=== PATIENT | male | born 1965 | race Hispanic/Latino ===

== ENCOUNTER 2017-06-27 08:49 | Emergency (ER) | payer BC ==
[~2017-06-27] VITALS: Ht 180.3 cm; Wt 85.6 kg
[~2017-06-27 08:49] MED LIST: ASPIRIN81 MG PO; BENAZEPRIL5 M1 OR; CLOPIDOGREL75 MG PO; ENALAPRIL2.5 MG PO; EQ OMEPRAZOLE20 MG PO; ISOSORB MONO30 MG PO; LEVEMIR1000 UNITS SC; LIPITOR40 M1 PO; LOPID600 MG PO; LORTAB 5-325 MG1 TAB PO; LORTAB5 OR; METFORMIN1000 MG PO; METOPROL TAR25 MG PO; TORADOL PO; ZOFRAN ODT4 MG SL; [UNRECOGNIZED DRUG - MIXTURE] PO
[2017-06-27] MEDS ORDERED: MOTRIN400 MG PO (11:32)
[2017-06-27] MEDS ORDERED: VOLTAREN1%GEL TOP (11:33)
[2017-06-27 11:45] VITALS: BP 123/84
== END 2017-06-27 11:45 | disposition home or self-care (01) | DRG 552 ==
LOC: ED 08:49
DX: M54.5 Low back pain (principal)

== ENCOUNTER 2017-07-26 21:08 | Emergency (ER) | payer BC ==
[~2017-07-26] VITALS: Ht 180.3 cm; Wt 85.8 kg
[~2017-07-26 21:08] MED LIST changes: +LEVEMIR FL100 UNIT/M SC; -LEVEMIR1000 UNITS SC; +MOTRIN400 MG PO; +VOLTAREN1%GEL TOP
[2017-07-26] MEDS ORDERED: ATORVASTATIN CA40 MG PO (21:21)
[2017-07-26] MEDS ORDERED: ASPIRIN EC LOW81 MG PO (21:23)
[2017-07-26] MEDS ORDERED: UROCIT-K 101080 MG PO (21:31)
[2017-07-26] MEDS ORDERED: METFORMIN500 M2 PO (21:32)
[2017-07-26] MEDS ORDERED: HYDROCHLOROT12.5 M1 PO (21:35)
[2017-07-26 21:58] LABS: HEMATOCRIT 44.3 % (39.0-50.0); HEMOGLOBIN 15.4 g/dl (14.0-18.0); IMMATURE GRANULOCYTES 0.5 % (0.0-1.0); MEAN CELL VOLUME 82.3 fL CALC (80.0-100.0); MEAN CORPUSCULAR HGB 28.6 pG CALC (26.0-32.0); MEAN CORPUSCULAR HGB CONC 34.8 g/L CALC (32.0-36.0); NEUT# 4.74 thou/uL (1.82-7.42); RED BLOOD COUNT 5.38 mill/uL (4.70-6.10); RED CELL DISTRI WIDTH 12.5 % (11.5-15.5)
[2017-07-26 22:10] LABS: ALBUMIN 4.2 g/dL (3.2-5.0); ALKALINE PHOSPHATASE 252 u/l (38-126); ANION GAP 19 (6-22 (CALC)); BILIRUBIN, TOTAL 0.3 mg/dL (0.0-1.4); BUN 20 mg/dL (9-20); BUN/CREATININE RATIO 26 (12-20 (CALC)); CALCIUM 9.3 mg/dL (8.4-10.2); CARBON DIOXIDE 21 mmol/l (22-30); CHLORIDE 103 mmol/l (95-108); CREATININE 0.8 mg/dL (0.7-1.3); GFR > 60 ML/MIN (>=60 (CALC)); GFR FOR AFR.AMER. > 60 ML/MIN (>=60 (CALC)); GLUCOSE 256 mg/dL (75-110); POTASSIUM 4.2 mmol/l (3.5-5.1); SGOT/AST 21 u/l (17-59); SGPT/ALT 35 u/l (21-72); SODIUM 139 mmol/l (137-146); TOTAL PROTEIN 6.4 g/dL (6.3-8.2)
[2017-07-26] MEDS ORDERED: ZITHROMAX250 MG PO (22:42)
[2017-07-26] MEDS ORDERED: MEDDOSEPAK PO (22:42)
[2017-07-26 23:10] VITALS: BP 146/90
== END 2017-07-26 23:12 | disposition home or self-care (01) | DRG 153 ==
LOC: ED 21:08
PROVIDERS: Emergency Medicine
DX: J06.9 Acute upper respiratory infection, unspecified (principal); E11.9 Type 2 diabetes mellitus without complications; I10 Essential (primary) hypertension; Z87.442 Personal history of urinary calculi

== ENCOUNTER 2020-07-05 18:51 | Emergency (ER) | payer OTHER ==
[~2020-07-05] VITALS: Ht 180.3 cm; Wt 87.0 kg
[~2020-07-05 18:51] MED LIST changes: +ASPIRIN EC LOW81 MG PO; +ATORVASTATIN CA40 MG PO; +HYDROCHLOROT12.5 M1 PO; +MEDDOSEPAK PO; +METFORMIN500 M2 PO; +UROCIT-K 101080 MG PO; +ZITHROMAX250 MG PO
[2020-07-05] MEDS ORDERED: NOVOLOG100 UNIT/M SC (19:26)
[2020-07-05] MEDS ORDERED: [UNRECOGNIZED DRUG - OTHER] (19:27)
[2020-07-05] MEDS ORDERED: GENTAMICIN SULF5 ML OS (19:30)
[2020-07-05 19:50] VITALS: BP 137/80
[2020-07-05] MEDS ORDERED: VICTOZA18 MG/3 ML SC (19:54)
[2020-07-05] MEDS ORDERED: OMEPRAZOLE DR40 MG PO (19:54)
== END 2020-07-05 19:50 | disposition home or self-care (01) | DRG 125 ==
LOC: ED 18:51
DX: S05.02XA Injury of conjunctiva and corneal abrasion without foreign body, left eye, initial encounter (principal); E11.9 Type 2 diabetes mellitus without complications; I10 Essential (primary) hypertension; X58.XXXA Exposure to other specified factors, initial encounter; Y93.89 Activity, other specified; Y92.009 Unspecified place in unspecified non-institutional (private) residence as the place of occurrence of the external cause; Z79.84 Long term (current) use of oral hypoglycemic drugs

== ENCOUNTER 2023-03-27 07:24 | Emergency (ER) | payer OTHER ==
[~2023-03-27] VITALS: Ht 177.8 cm; Wt 79.4 kg
[2023-03-27] VITALS (25 sets, daily range): BP systolic 107–155; BP diastolic 69–90
[~2023-03-27 07:24] MED LIST changes: +GENTAMICIN SULF5 ML OS; +NOVOLOG100 UNIT/M SC; +OMEPRAZOLE DR40 MG PO; +VICTOZA18 MG/3 ML SC; +[UNRECOGNIZED DRUG - OTHER]
[2023-03-27] MEDS ORDERED: IBUPROFEN600 MG PO (14:40)
[2023-03-27] MEDS ORDERED: METHOCARBAMOL500 MG PO (14:40)
[2023-03-27] MEDS ORDERED: AMOX/K CLAV875 M1 PO (14:44)
== END 2023-03-27 15:30 | disposition home or self-care (01) | DRG 923 ==
LOC: ED 07:24
DX: Z04.1 Encounter for examination and observation following transport accident (principal); J32.9 Chronic sinusitis, unspecified; I10 Essential (primary) hypertension; E11.9 Type 2 diabetes mellitus without complications; E78.00 Pure hypercholesterolemia, unspecified; Z79.84 Long term (current) use of oral hypoglycemic drugs; Z79.4 Long term (current) use of insulin

== ENCOUNTER 2024-03-26 17:05 | Emergency (ER) | payer OTHER ==
[~2024-03-26] VITALS: Ht 177.8 cm; Wt 74.0 kg
[~2024-03-26 17:05] MED LIST changes: +AMOX/K CLAV875 M1 PO; +IBUPROFEN600 MG PO; +METHOCARBAMOL500 MG PO
[2024-03-26] MEDS ORDERED: ONDANSETRON HCl 4 MG/2 ML SDV IV ONE (17:15)
[2024-03-26] MEDS ORDERED: MORPHINE SULFATE 4 MG/ML VIAL IV ONE (17:15)
[2024-03-26 17:41] LABS: BASO% 0.3 % (0-3); HEMOGLOBIN 14.2 g/dl (14.0-18.0); IMMATURE GRANULOCYTES 0.6 % (0.0-5.0); LYMPH% 24.8 % (15-41); MEAN CELL VOLUME 82.2 fL CALC (80.0-100.0); MEAN CORPUSCULAR HGB 27.2 pG CALC (26.0-32.0); NEUT# 4.43 thou/uL (1.82-7.42); NEUT% 64.3 % (42-76); RED BLOOD COUNT 5.23 mill/uL (4.70-6.10); RED CELL DISTRI WIDTH 14.1 % (11.5-15.5)
[2024-03-26 17:49] LABS: ALBUMIN 4.2 g/dL (3.2-5.0); CREATININE 0.8 mg/dL (0.7-1.3); POTASSIUM 4.1 mmol/l (3.5-5.1); TOTAL PROTEIN 6.8 g/dL (6.3-8.2)
[2024-03-26 17:51] LABS: BILIRUBIN, TOTAL 0.5 mg/dL (0.2-1.3)
[2024-03-26 18:05] LABS: URINE BILIRUBIN - DIPSTICK Negative (NEGATIVE); URINE BLOOD DIPSTICK Negative (NEGATIVE); URINE CLARITY Clear; URINE GLUCOSE - DIPSTICK >=1000 mg/dL (NEGATIVE); URINE KETONE Negative (NEGATIVE); URINE LEUK ESTERASE Negative (Negative); URINE NITRITE - DIPSTICK Negative (Negative); URINE PROTEIN - DIPSTICK Negative (NEG-TRACE); URINE UROBILINOGEN - DIPSTICK 0.2 E.U./dL (0.2)
[2024-03-26 18:09] LABS: URINE COLOR Yellow
[2024-03-26 21:53] VITALS: BP 175/88
== END 2024-03-26 21:55 | disposition home or self-care (01) | DRG 552 ==
LOC: ED 17:05
PROVIDERS: Emergency Medicine
DX: S16.1XXA Strain of muscle, fascia and tendon at neck level, initial encounter (principal); S39.011A Strain of muscle, fascia and tendon of abdomen, initial encounter; S29.012A Strain of muscle and tendon of back wall of thorax, initial encounter; I10 Essential (primary) hypertension; E11.9 Type 2 diabetes mellitus without complications; E78.00 Pure hypercholesterolemia, unspecified; V49.40XA Driver injured in collision with unspecified motor vehicles in traffic accident, initial encounter; Z79.4 Long term (current) use of insulin; Z79.85 Long-term (current) use of injectable non-insulin antidiabetic drugs
CPT/HCPCS: Q9967